=== PATIENT | male | born 1980 | race Caucasian/White ===

== ENCOUNTER 2024-01-01 15:34 | Outpatient (CLI) | payer MEDICAID ==
[~2024-01-01] VITALS: Ht 205.7 cm; Wt 102.5 kg
[2024-01-01 16:08] LABS: TOTAL HEMOGLOBIN 17.4 G/dl (14.0-17.9)
[2024-01-01] MEDS: albuterol 2.5 MG/3 ML nebule NEB ONE (16:41)
[2024-01-01 16:45] VITALS: PULSE 89; RESP 16; O2SAT 89
== END 2024-01-01 23:59 | disposition home or self-care (01) ==
LOC: RT 15:34
PROVIDERS: ATTEND Internal Medicine Pulmonary Disease
DX: J45.998 Other asthma (principal); R94.2 Abnormal results of pulmonary function studies
CPT/HCPCS: 85018; 94060; 94727; 94729; 94760